=== PATIENT | female | born 1995 ===

== ENCOUNTER 2021-12-13 16:09 | Inpatient (IN) | payer BC ==
[2021-12-13] MEDS ORDERED: Sodium Chloride 0.9% 2.5 ML Syringe FLUSH PRN (16:13)
[2021-12-13] MEDS ORDERED: Terbutaline 1 MG/ML SDV SUBCUT PRN (16:13)
[2021-12-13] MEDS ORDERED: Butorphanol 1 MG/ML SDV IVPUSH PRN (16:13)
[2021-12-13] MEDS ORDERED: Water For Irrigation,Sterile 1,000 ML Container IRR PRN (16:13)
[2021-12-13] MEDS ORDERED: Carboprost Tromethamine 250 MCG/1 ML Amp IM PRN (16:13)
[2021-12-13] MEDS ORDERED: Ondansetron 4 MG/2 ML SDV IVPUSH PRN (16:13)
[2021-12-13] MEDS ORDERED: Sodium Chloride 0.9% 20 ML SDV IV PRN (16:13)
[2021-12-13] MEDS ORDERED: Misoprostol 200 MCG Tab PO PRN (16:13)
[2021-12-13] MEDS ORDERED: Lidocaine 1% 50 ML MDV INJECT PRN (16:13)
[2021-12-13] MEDS ORDERED: Sodium Chloride 0.9% 10 ML Syringe FLUSH PRN (16:13)
[2021-12-13] MEDS ORDERED: Methylergonovine 0.2 MG/1 ML Amp IM PRN (16:13)
[2021-12-13] MEDS ORDERED: Tranexamic Acid 1,000 MG in Sodium Chloride 0.9% 100 ML IV PRN (16:13)
[2021-12-13] MEDS ORDERED: Lactated Ringers 1,000 ML IV SCH (16:15)
[2021-12-13] MEDS ORDERED: Oxytocin/0.9 % Sodium Chloride 30 UNIT/500 ML BAG IV SCH ×2 (16:15)
[2021-12-13] MEDS ORDERED: Ropivacaine 200 MG in Premix Bag 1 BAG EPIDUR SCH (23:45)
[2021-12-13] MEDS ORDERED: Ropivacaine 100 ML ONE (23:46)
[2021-12-13] MEDS ORDERED: ePHEDrine 50 MG/ML SDV IVPUSH PRN ×2 (23:55)
[2021-12-14] MEDS ORDERED: Benzocaine/Menthol 20%-0.5% Spray 78 GM Cannister TOP PRN (03:46)
[2021-12-14] MEDS ORDERED: Lanolin 100% Cream 7 GM Tube TOP PRN (03:46)
[2021-12-14] MEDS ORDERED: Bisacodyl 10 MG Supp RECTAL PRN (03:46)
[2021-12-14] MEDS ORDERED: Tranexamic Acid 1,000 MG in Sodium Chloride 0.9% 100 ML IV PRN (03:46)
[2021-12-14] MEDS ORDERED: Witch Hazel Medicated Pads 40/Jar TOP PRN (03:46)
[2021-12-14] MEDS ORDERED: Ibuprofen 400 MG Tab PO PRN (03:46)
[2021-12-14] MEDS ORDERED: Methylergonovine 0.2 MG/1 ML Amp IM PRN (03:46)
[2021-12-14] MEDS ORDERED: Acetaminophen 500 MG Tab PO PRN (03:46)
[2021-12-14] MEDS ORDERED: Sodium Chloride 0.9% 0 ML ONE (04:33)
[2021-12-14] MEDS: Ibuprofen 800 MG Tab PO PRN ×3 (05:31→20:21)
[2021-12-14] MEDS: Acetaminophen 500 MG Tab PO PRN ×2 (10:27→17:56)
[2021-12-14] MEDS: Docusate Sodium 100 MG Cap PO PRN (17:57)
[2021-12-15] MEDS: Docusate Sodium 100 MG Cap PO PRN ×2 (07:47→20:26)
[2021-12-15] MEDS: Ibuprofen 800 MG Tab PO PRN ×2 (07:47→17:43)
[2021-12-15] MEDS: Acetaminophen 500 MG Tab PO PRN ×2 (10:13→20:26)
[2021-12-16] MEDS: Ibuprofen 800 MG Tab PO PRN ×2 (00:05→08:25)
[2021-12-16] MEDS: Acetaminophen 500 MG Tab PO PRN (04:47)
[2021-12-16] MEDS: Docusate Sodium 100 MG Cap PO PRN (08:16)
== END 2021-12-16 12:15 | disposition home or self-care (01) | DRG 560 ==
LOC: MW.OB 16:09 → MW.OBCHECK 16:09 → MW.OB 16:13 → MW.OBCHECK 16:13 → OBSVTOIN 12-14 03:13 → MW.OB 12-14 13:00
PROVIDERS: ADMIT Obstetrics & Gynecology; ATTEND Obstetrics & Gynecology
PROC: 10E0XZZ Delivery of Products of Conception, External Approach (ICD-10-PCS; principal; 2021-12-14)
PROC: 0KQM0ZZ Repair Perineum Muscle, Open Approach (ICD-10-PCS; 2021-12-14)
PROC: 3E033VJ Introduction of Other Hormone into Peripheral Vein, Percutaneous Approach (ICD-10-PCS; 2021-12-14)
PROC: 3E0R3BZ Introduction of Anesthetic Agent into Spinal Canal, Percutaneous Approach (ICD-10-PCS; 2021-12-14)
PROC: 00HU33Z Insertion of Infusion Device into Spinal Canal, Percutaneous Approach (ICD-10-PCS; 2021-12-14)
DX: O70.1 Second degree perineal laceration during delivery (principal); Z37.0 Single live birth; Z20.822 Contact with and (suspected) exposure to COVID-19; Z3A.39 39 weeks gestation of pregnancy
CPT/HCPCS: 01967; 36415; 51702; 59025; 59409; 82803; 85014; 85018; 85027; 86592; 86850; 86900; 86901; A9270-GY; J2590; J2795; J7120; U0002